=== PATIENT | female | born 1960 | race Caucasian/White ===

== ENCOUNTER 2017-03-31 21:42 | Emergency (ER) | payer MEDICAID ==
[~2017-03-31] VITALS: Ht 157.5 cm; Wt 92.1 kg
[~2017-03-31 21:42] MED LIST: INSUINJ IJ; LISI-646 PO
[2017-03-31 22:24] LABS: Basophils # (auto) 0 uL; Basophils % (auto) 0.5 % (0.0-2.0); Eosinophils # (auto) 0 uL; Hematocrit 41.9 % (36.0-46.0); Hemoglobin 13.7 g/dL (12.2-16.2); Lymphocytes # (auto) 0.8 uL; Lymphocytes % (auto) 15.2 % (10.0-50.0); Mean Corpuscular Hemoglobin 29.7 pg (28.0-32.0); Mean Corpuscular Hgb Conc. 32.7 g/dL (32.0-36.0); Mean Corpuscular Volume 90.7 fL (80.0-100.0); Monocytes # (auto) 0.1 uL; Monocytes % (auto) 1.4 % (0.0-12.0); Neutrophils # (auto) 4.5 uL; Neutrophils % (auto) 82.9 % (37.0-80.0); Nucleated Red Blood Cells % 0.1 %; Platelet Count (auto) 256 10^3/uL (140-450); Red Blood Cells 4.62 10^6/uL (4.0-5.20); Red Cell Distribution Width 14.4 % (11.8-14.3); White Blood Cell 5.4 10^3/uL (4.4-10.8)
[2017-03-31 22:48] LABS: Albumin 3.6 g/dL (3.4-5.0); BUN/Creatinine Ratio 18.4; Bilirubin, Total 0.4 mg/dL (0.2-1.0); Calcium 9.2 mg/dL (8.5-10.1); Magnesium 2.3 mg/dL (1.6-2.6)
[2017-04-01] MEDS ORDERED: SODIUM CHLORIDE 0.9% 1,000 ML IV ONE ×2 (03:30→06:15)
[2017-04-01] MEDS ORDERED: HYDROcodone-ACET 5/325MG TAB PO ONE ×2 (04:15→08:30)
[2017-04-01] MEDS ORDERED: InsuLIN REG 1unit/0.01ml Soln (100units/ml) IV ONE ×2 (04:15→06:15)
[2017-04-01] MEDS ORDERED: MORPHINE SULFATE 10 MG/ML INJ 1ML SDV IV ONE (06:00)
[2017-04-01] MEDS ORDERED: ONDANSETRON HCL 4 MG/2 ML VIAL IV ONE (06:00)
[2017-04-01] MEDS ORDERED: ONDANSETRON HCL 4 MG/2 ML VIAL ONE (06:05)
[2017-04-01 10:51] VITALS: BP 108/79
== END 2017-04-01 07:21 | disposition home or self-care (01) ==
LOC: EDBD 21:42 → ER 21:49
DX: R07.89 Other chest pain (principal); E11.65 Type 2 diabetes mellitus with hyperglycemia; I10 Essential (primary) hypertension; I25.2 Old myocardial infarction; E78.5 Hyperlipidemia, unspecified; Z90.49 Acquired absence of other specified parts of digestive tract; Z87.891 Personal history of nicotine dependence; Z88.2 Allergy status to sulfonamides
CPT/HCPCS: 36415; 80053; 82010; 82962; 83735; 84484; 85025; 93005; 96361; 96374; 96375; 96376; 99285; J7030; 71045; J2405

== ENCOUNTER 2025-02-26 09:57 | Inpatient (IN) | payer OTHER, MEDICAID ==
[~2025-02-26] VITALS: Ht 157.5 cm; Wt 108.9 kg
[~2025-02-26 09:57] MED LIST changes: -LISI-646 PO; +LISI20TA56 PO
--- NOTE | 2025-02-26 10:15 | ED.PDOC ---
Altered Mental Status HPI Comments This is a 64 year old female JRA presenting to the ED with chief complaint of ALOC/hypoglycemia. EMS reports that the patient was found by family to be unresponsive at home in her walker. EMS relays that the patient's glucose on scene was 43, administering D10 with eventual improvement in mentation noted. EMS states patient has history of Type 1 DM and took her insulin this morning. Patient notes she does not remember any of the events this morning after taking her insulin. Patient denies any chest pain, SOB, dizziness, headache, N/V, or abdominal pain. Chief Complaint: Hypoglycemia Time Seen by MD: 10:12 Primary Care Provider: NOE Reviewed Notes: Nurses Notes, Personnel Worker Notes, Medications, Allergies Allergies: Coded Allergies: NSAIDs (Verified Allergy, Unknown, 02/26/25) Sulfa Antibiotics (Unverified Allergy, Unknown, 03/15/15) Home Meds Reported Medications Insulin Regular (Human) (Humulin R) 1 Ml Inj, 1 ML IJ, INJ 03/16/15 Lisinopril (Lisinopril) 20 Mg Tab, 1 TAB PO DAILY, #30 TAB 5 Refills 03/16/15 Information Source: Patient, Emergency Med Personnel Mode of Arrival: EMS Severity: Moderate Timing: Hours Duration: Since onset Prehospital treatment: None Quality: Decreased Alertness, Change in Behavior, Confusion Recent: None History of: Diabetes, Hypoglycemia Past Medical History PAST MEDICAL HISTORY: DM, High Lipids, HTN, SC, Thyroid Surgical History: Cholecystectomy, SET UP MECHANIC STAMPING MACHINES History: No Pertinent SET UP MECHANIC STAMPING MACHINES History Family History Family History: Reviewed,noncontributory to illness, Unknown Social History Smoker: Non-Smoker, Quit Greater Than 1 Year Alcohol: Rarely Drugs: Denies Drug Use Lives In: Home Constitutional: reports: fatigue; denies: chills, diaphoresis, fever, malaise, sweats, weakness, others EENTM: denies: blurred vision, double vision, ear bleeding, ear discharge, ear drainage, ear pain, ear ringing, eye pain, eye redness, hearing loss, mouth pain, mouth swelling, nasal discharge, nose bleeding, nose congestion, nose pain, photophobia, tearing, throat pain, throat swelling, voice changes, others Respiratory: denies: cough, hemoptysis, orthopnea, SOB at rest, shortness of breath, SOB with excertion, stridor, wheezing, others Cardiovascular: denies: chest pain, dizzy spells, diaphoresis, Dyspnea on exertion, edema, irregular heart beat, left arm pain, lightheadedness, palpitations, PND, syncope, others Gastrointestinal: denies: abdomen distended, abdominal pain, blood streaked bowels, constipated, diarrhea, dysphagia, difficulty swallowing, hematemesis, melena, nausea, poor appetite, poor fluid intake, rectal bleeding, rectal pain, vomiting, others Genitourinary: denies: abnormal vagina bleeding, burning, dyspareunia, dysuria, flank pain, frequency, hematuria, incontinence, pain, , vagina discharge, urgency, others Neurological: denies: dizziness, fainting, headache, left sided numbness, left sided weakness, numbness, paresthesia, pre-existing deficit, right sided numbness, right sided weakness, seizure, speech problems, tingling, tremors, w eakness, others Musculoskeletal: denies: back pain, gout, joint pain, joint swelling, muscle pain, muscle stiffness, neck pain, others Integumetry: denies: bruises, change in color, change in hair/nails, dryness, laceration, lesions, lumps, rash, wounds, others Allergic/Immunocompromised: denies: Difficulty Healing, Frequent Infections, Hives, Itching, others Hematologic/Lymphatic: denies: anemia, blood clots, easy bleeding, easy bruising, swollen glands, others Endocrine: reports: others (Hypoglycemia); denies: excessive hunger, excessive sweating, excessive thirst, excessive urination, flushing, intolerance to cold, intolerance to heat, unexplained weight gain, unexplained weight loss Psychiatric: denies: anxiety, bipolar disorder, depression, hopeless, panic disorder, schizophrenia, sleepless, suicidal, others All Other Systems: Reviewed and Negative Physical Exam General Appearance: Moderate Distress, Normal HEENT: Normal ENT Inspection, Pharynx Normal, TMs Normal Neck: Full Range of Motion, Non-Tender, Normal, Normal Inspection Respiratory: Chest Non-Tender, Lungs Clear, No Accessory Muscle Use, No Respiratory Distress, Normal Breath Sounds Cardiovascular: No Edema, No JVD, No Murmur, No Gallop, Normal Peripheral P ulses, Regular Rate/Rhythm Breast Exam: Deferred Gastrointestinal: No Organomegaly, Non Tender, No Pulsatile Mass, Normal Bowel Sounds, Soft Genitalia: Deferred Pelvic: Deferred Rectal: Deferred Extremities: No calf tenderness, Normal capillary refill, Normal inspection, Normal range of motion, Non-tender, No pedal edema Musculoskeletal : Apperance: Normal Neurologic: Alert, resident service coordinator II-XII nml as Tested, No Motor Deficits, Normal Affect, Normal Mood, No Sensory Deficits Cerebellar Function: NOT DONE Reflexes: NOT DONE Skin: Dry, Normal Color, Warm Peripheral Pulses: 3+ Radial (R), 3+ Radial (L) Lymphatic: No Adenopathy Was a procedure done? Was a procedure done?: No Differential Diagnosis (ALOC) Differential Diagnosis: Dehydration, Hypoglycemia X-Ray, Labs, Meds, VS Vital Signs Date Time Temp Pulse Resp B/P (MAP) Pulse Ox O2 Delivery O2 Flow Rate FiO2 02/26/25 13:19 97.3 67 16 143/75 (97) 97 97.3 02/26/25 11:39 67 14 98 Room Air* 0 21 02/26/25 11:39 97.9 67 14 148/81 (103) 98 97.9 02/26/25 10:02 65 02/26/25 09:57 97.9 66 16 154/79 94 97.9 Lab Test 02/26/25 14:02 02/26/25 13:06 02/26/25 11:34 02/26/25 10:53 Range/Units POC Glucose 104 77 61 L 70-106 mg/dl Urine Color Light-yellow Yellow Urine Clarity Clear Clear Urine pH 6.5 5.0-9.0 Urine Specific [place] 1.009 1.001-1.035 Urine Protein Negative Negative Urine Ketones Negative Negative Urine Blood Negative Negative /uL Urine Nitrite Negative Negative Urine Bilirubin Negative Negative Urine Urobilinogen Normal Negative mg/dL Urine Leukocyte Esterase 2+ Negative /uL Urine RBC 2 0 - 4 /hpf Urine Microscopic WBC 5 0-5 /HPF Urine Squamous Epithelial Cells Few <5 /hpf Urine Bacteria Few H None Seen /hpf Urine Glucose Normal Normal mg/dL Test 02/26/25 10:52 Range/Units White Blood Count 10.4 4.4-10.8 10^3/uL Red Blood Count 4.52 4.0-5.20 10^6/uL Hemoglobin 13.4 12.2-16.2 g/dL Hematocrit 41.5 36.0-46.0 % Mean Corpuscular Volume 91.8 80.0-100.0 fL Mean Corpuscular Hemoglobin 29.7 28.0-32.0 pg Mean Corpuscular Hemoglobin Concent 32.4 32.0-36.0 g/dL Red Cell Distribution Width 15.1 H 11.8-14.3 % Platelet Count 280 140-450 10^3/uL Mean Platelet Volume 7.8 6.9-10.8 fL Neutrophils (%) (Auto) 68.7 37.0-80.0 % Lymphocytes (%) (Auto) 18.3 10.0-50.0 % Monocytes (%) (Auto) 10.2 0.0-12.0 % Eosinophils (%) (Auto) 2.2 0.0-7.0 % Basophils (%) (Auto) 0.6 0.0-2.0 % Neutrophils # (Auto) 7.2 1.6-8.6 10 ^3/uL Lymphocytes # (Auto) 1.9 0.4-5.4 10 ^3/uL Monocytes # (Auto) 1.1 0-1.3 10 ^3/uL Eosinophils # (Auto) 0.2 0-0.8 10 ^3/uL Basophils # (Auto) 0.1 0-0.2 10 ^3/uL Nucleated Red Blood Cells 0.0 % Sodium Level 143 136-145 mmol/L Potassium Level 4.8 3.5-5.1 mmol/L Chloride Level 108 H 98-107 mmol/L Carbon Dioxide Level 27 20-31 mmol/L Anion Gap 8 5-15 Blood Urea Nitrogen 12 9-23 mg/dL Creatinine 0.90 0.550-1.02 mg/dL Glomerular Filtration Rate Calc 71 >90 mL/min BUN/Creatinine Ratio 13.3 10.0-20.0 Serum Glucose 62 L 74-106 mg/dL Calcium Level 9.3 8.7-10.4 mg/dL Troponin I High Sensitivity 7 </=34 ng/L Current Medications Medications (Trade) Dose Ordered Sig/Libby Route Start Time Stop Time Status Last Admin Dextrose 1,000 ml @ 75 mls/hr [id number] ONCE IV 02/26/25 11:30 02/27/25 00:49 02/26/25 11:50 Patient alert. Answering questions. Was altered in the field. Vitals stable. Blood sugar continues to drop. Placed on D10. She does have insulin dependent diabetes. Continue monitoring. [facility] approved inpatient admission [id number]. Time of 1ST Reevaluation: 11:11 Reevaluation 1ST: Unchanged Patient Education/Counseling: Diagnosis, Treatment Family Education/Counseling: No Family Present SEPSIS Sepsis Screen Physician Orders Chest Portable (02/26/25 10:10) Electrocardigram (02/26/25 10:15) Accucheck (02/26/25 10:41) Dextrose 10% (02/26/25 11:30) Vital Signs Date Time Temp Pulse Resp B/P (MAP) Pulse Ox O2 Delivery O2 Flow Rate FiO2 02/26/25 13:19 97.3 67 16 143/75 (97) 97 97.3 02/26/25 11:39 67 14 98 Room Air* 0 21 02/26/25 11:39 97.9 67 14 148/81 (103) 98 97.9 02/26/25 10:02 65 02/26/25 09:57 97.9 66 16 154/79 94 97.9 Laboratory Tests Test 02/26/25 10:52 White Blood Count 10.4 10^3/uL (4.4-10.8) Medications Medications Dose Ordered Sig/Libby Route Start Time Stop Time Status Last Admin Dose Admin Dextrose 1,000 ml @ 75 mls/hr [id number] ONCE IV 02/26/25 11:30 02/27/25 00:49 02/26/25 11:50 Departure 1 Departure Time of Disposition: 14:47 Impression: Primary Impression: Hypoglycemia Disposition: ADMITTED INPATIENT Admit to: Med Surg Condition: Guarded Critical Care Note Critical Care Time?: Yes (90 min-critical care time only) Stability Stability form required: No Heart Score Heart Score: Heart Score Response (Comments) Value History N/A 0 EKG N/A 0 Age N/A 0 Risk Factors N/A 0 Troponin N/A 0 Total 0 I personally scribed for BELÉN IRAHETA MD ([email or web address]) on 02/26/25 at 10:15. Electronically submitted by Giorgi Gil ([email or web address]). BELÉN IRAHETA MD Feb 26, 2025 10:15
--- NOTE | 2025-02-26 10:17 | ECG ---
[facility] Test Date: 2025-02-26 Test Time: 10:02:56 Pat Name: DONNA MARTINEZ Department: [facility] ED Patient ID: [id number] Room: Gender: F Gas Load Dispatcher: marleny : 1960 Requested By: BELÉN IRAHETA Order Number: [id number] Reading MD: Asher Teran Measurements Intervals [place] Rate: 65 P: 46 IA: 206 QRS: -29 QRSD: 129 T: 21 QT: 504 QTc: 525 Interpretive Statements Sinus rhythm Nonspecific intraventricular conduction delay Inferior infarct, old Probable anterior infarct, age indeterminate Baseline wander in lead(s) I,II,aVR Electronically Signed On 02-26-2025 15:29:39 PST by Asher Teran Please click the below link to view image of tracing.
--- NOTE | 2025-02-26 11:04 | DVH ---
CHEST RADIOGRAPH INDICATION: sob TECHNIQUE: Single frontal view of the chest was obtained COMPARISON: None FINDINGS: Lines and Tubes: None Lungs: Clear Pleura: No effusion. No pneumothorax. Cardiomediastinal contours: Unremarkable Bones: Unremarkable IMPRESSION: No acute disease.
[2025-02-26 11:30] LABS: Hematocrit 41.5 % (36.0-46.0); Hemoglobin 13.4 g/dL (12.2-16.2); Mean Corpuscular Hemoglobin 29.7 pg (28.0-32.0); Mean Corpuscular Volume 91.8 fL (80.0-100.0); Nucleated Red Blood Cells % 0.0 %
[2025-02-26] MEDS: DEXTROSE 10% 1,000 ML IV ONE ×2 (11:30→11:50)
[2025-02-26 11:31] LABS: Potassium 4.8 mmol/L (3.5-5.1); Sodium 143 mmol/L (136-145)
[2025-02-26 11:32] LABS: Anion Gap 8 (5-15); Calcium 9.3 mg/dL (8.7-10.4); Carbon Dioxide 27 mmol/L (20-31)
[2025-02-26 11:35] LABS: Chloride 108 mmol/L (98-107)
[2025-02-26 11:37] LABS: BUN/Creatinine Ratio 13.3 (10.0-20.0); Blood Urea Nitrogen 12 mg/dL (9-23)
[2025-02-26 11:38] LABS: Glucose 62 mg/dL (74-106)
[2025-02-26 11:39] VITALS: PULSE 67; RESP 14; O2SAT 98
[2025-02-26 14:00] VITALS: PULSE 72; RESP 21; O2SAT 97
[2025-02-26 14:10] LABS: Urine Protein, UAD Negative (Negative)
[2025-02-26] MEDS ORDERED: MORPHINE SULFATE INJ 2 MG/ml SYRG IV PRN (17:45)
[2025-02-26] MEDS ORDERED: DEXTROSE (50%) 50ML SYRG IV PRN ×2 (17:45→18:45)
[2025-02-26] MEDS ORDERED: NITROGLYCERIN 0.4 MG SL TAB SL PRN (17:45)
[2025-02-26] MEDS ORDERED: ONDANSETRON HCL 4 MG/2 ML VIAL IV PRN (17:45)
--- NOTE | 2025-02-26 18:10 | DVHHPRES ---
History of Present Illness Resident Creating Document: LUCIO MATHIAS RESIDENT History of Present Illness Ms Storey is a 64 y o female patient with a history of diabetes, thyroid disease, and two prior heart attacks presenting after being found catatonic in her kitchen this morning by her . The patient reports that her found her sitting in her kitchen, sweaty and unresponsive to verbal stimuli. She has no recollection of the event. Her gave her a mini can of soda, which she drank but remained non-responsive. Emergency medical services were called and administered IV sugar and other treatments, but she remained very non- responsive. She reports one prior similar episode but states she never passed out during that incident and could hear everything happening around her. This is the first time she has experienced complete unresponsiveness. The patient reports taking both long-acting and short-acting insulin and checks her blood glucose three times daily before taking insulin. Her blood glucose was 105 this morning when she woke up, but she still took her insulin dose. She denies skipping meals recently. She occasionally sees glucose readings over 200 after meals but describes this as infrequent. She has not had any recent changes to her insulin regimen by her primary care physician, Dr. Plummer. The patient reports some urinary symptoms including incontinence and some burning sensation. She has intermittent bleeding and was scheduled for surgery on February 24 for an endometrial biopsy to check for endometrial cancer. She has a chronic cough that she describes as longstanding. She denies recent fever, chills, or diarrhea. She recently saw her range conservationist for cardiac clearance and had an echocardiogram on Wednesday, with a stress test scheduled for March 06 and due to cardiac concerns. Medical History - Diabetes mellitus - Thyroid disorder - History of two myocardial infarctions with four cardiac stents placed - Hypertension - One prior episode of hypoglycemia without loss of consciousness - Urinary incontinence - Intermittent vaginal bleeding Surgical History - Cardiac catheterization with stent placement for coronary artery disease following two myocardial infarctions Medications and Supplements - Insulin long-acting and short-acting - Takes after checking blood glucose 3 times daily - Prasgrel - Baby aspirin daily - Atorvastatin - Levothyroxine one pill every morning dose not known Social History - Living Situation: Lives with . Denies smoking, alcohol and other drug abuse Review of Systems General: Negative for fever. Respiratory: Positive for chronic cough. Gastrointestinal: Negative for diarrhea. Genitourinary: Positive for urinary incontinence, burning sensation with urination, and intermittent bleeding. Review of Systems Allergies: Coded Allergies: NSAIDs (Verified Allergy, Unknown, 02/26/25) Sulfa Antibiotics (Unverified Allergy, Unknown, 03/15/15) Medications Current Medications Medications Dose Ordered Sig/Libby Route Start Time Stop Time Status Last Admin Dose Admin Sodium Chloride 10 ml Q8HR IV 02/26/25 22:00 Ondansetron HCl 4 mg Q4HP PRN IV 02/26/25 17:45 Enoxaparin Sodium 40 mg DAILY SC 02/27/25 10:00 UNV Acetaminophen 650 mg Q6HP PRN PO 02/26/25 17:45 Nitroglycerin 0.4 mg Q5MINP PRN SL 02/26/25 17:45 Morphine Sulfate 2 mg Q30M PRN IV 02/26/25 17:45 Diagnostic Test (Pha) 1 strip IQ4HR 02/26/25 20:00 Insulin Human Regular IQ4HR SC 02/26/25 20:00 Dextrose 50 ml UD PRN IV 02/26/25 17:45 Ceftriaxone Sodium 50 ml @ 100 mls/hr DAILY@09 IV 02/27/25 09:00 Exam Vital Signs Vital Signs Date Time Temp Pulse Resp B/P (MAP) Pulse Ox O2 Delivery O2 Flow Rate FiO2 02/26/25 16:00 73 02/26/25 16:00 97.6 21 164/81 (108) 97 97.6 02/26/25 14:00 Room Air* 0 21 Exam Pt is lying on bed General Appearance: Alert, Oriented X3, Cooperative, Not in acute distress HEENT: Atraumatic, Mucous membranes moist/pink Respiratory: Clear to auscultation, Normal air movement, No added sounds Cardiovascular: Regular rate, Normal S1, Normal S2, No murmurs Abdominal: Active bowel sounds, Soft, no distention, no tenderness Extremities: Trace edema, Normal pulses, No tenderness/swelling Skin: No Significant rash, except past surgical scars Neuro: Normal speech, sensorimotor deficits none Psych/Mental Status: Mental status NL, Mood NL Nurse was there as sealer aircraft during examination Labs/Xrays Labs Test 02/26/25 14:02 02/26/25 13:06 02/26/25 10:52 Range/Units POC Glucose 104 70-106 mg/dl Urine Color Light-yellow Yellow Urine Clarity Clear Clear Urine pH 6.5 5.0-9.0 Urine Specific [place] 1.009 1.001-1.035 Urine Protein Negative Negative Urine Ketones Negative Negative Urine Blood Negative Negative /uL Urine Nitrite Negative Negative Urine Bilirubin Negative Negative Urine Urobilinogen Normal Negative mg/dL Urine Leukocyte Esterase 2+ Negative /uL Urine RBC 2 0 - 4 /hpf Urine Microscopic WBC 5 0-5 /HPF Urine Squamous Epithelial Cells Few <5 /hpf Urine Bacteria Few H None Seen /hpf Urine Glucose Normal Normal mg/dL White Blood Count 10.4 4.4-10.8 10^3/uL Red Blood Count 4.52 4.0-5.20 10^6/uL Hemoglobin 13.4 12.2-16.2 g/dL Hematocrit 41.5 36.0-46.0 % Mean Corpuscular Volume 91.8 80.0-100.0 fL Mean Corpuscular Hemoglobin 29.7 28.0-32.0 pg Mean Corpuscular Hemoglobin Concent 32.4 32.0-36.0 g/dL Red Cell Distribution Width 15.1 H 11.8-14.3 % Platelet Count 280 140-450 10^3/uL Mean Platelet Volume 7.8 6.9-10.8 fL Neutrophils (%) (Auto) 68.7 37.0-80.0 % Lymphocytes (%) (Auto) 18.3 10.0-50.0 % Monocytes (%) (Auto) 10.2 0.0-12.0 % Eosinophils (%) (Auto) 2.2 0.0-7.0 % Basophils (%) (Auto) 0.6 0.0-2.0 % Neutrophils # (Auto) 7.2 1.6-8.6 10 ^3/uL Lymphocytes # (Auto) 1.9 0.4-5.4 10 ^3/uL Monocytes # (Auto) 1.1 0-1.3 10 ^3/uL Eosinophils # (Auto) 0.2 0-0.8 10 ^3/uL Basophils # (Auto) 0.1 0-0.2 10 ^3/uL Nucleated Red Blood Cells 0.0 % Sodium Level 143 136-145 mmol/L Potassium Level 4.8 3.5-5.1 mmol/L Chloride Level 108 H 98-107 mmol/L Carbon Dioxide Level 27 20-31 mmol/L Anion Gap 8 5-15 Blood Urea Nitrogen 12 9-23 mg/dL Creatinine 0.90 0.550-1.02 mg/dL Glomerular Filtration Rate Calc 71 >90 mL/min BUN/Creatinine Ratio 13.3 10.0-20.0 Serum Glucose 62 L 74-106 mg/dL Calcium Level 9.3 8.7-10.4 mg/dL Troponin I High Sensitivity 7 </=34 ng/L SEPSIS Sepsis Screen Date sepsis recognized/suspect: Feb 26, 2025 Time Sepsis recognized/suspect: 1400 Recent Procedure: No On Antibiotic Therapy: No Respiratory Rate >20: No Heart Rate >90: No Temp<36 C (96.8 F) or >38.3 C: No SBP <90 or MAP <65 mmHG: No New Acute Mental Status Change: No Is the patient on CPAP, BIPAP,: No Physician Orders Electrocardigram (02/26/25 10:15) Accucheck (02/26/25 10:41) Dextrose 10% (02/26/25 11:30) Admit (02/26/25 17:44) Allergies (02/26/25 17:44) Code Status (02/26/25 17:44) Sodium Chloride Lock (Saline Lock Ns) (02/26/25 22:00) Ondansetron Hcl (Zofran) (02/26/25 17:45) Enoxaparin Sodium (Lovenox) (02/27/25 10:00) Complete Blood Count (02/27/25 04:00) Comprehensive Metabolic Panel (02/27/25 04:00) Cardiac Diet-2gna,Lofat,Lochol (02/26/25 Dinner) Condition: Fair (02/26/25 17:44) Acetaminophen Tablet (Tylenol Tablet) (02/26/25 17:45) Nitroglycerin Sublingual (Ntrostat Subli (02/26/25 17:45) Morphine Sulfate Injection (02/26/25 17:45) Oxygen By Nasal Cannula (02/26/25 17:44) Stat Ekg For Chest Pain (02/26/25 17:44) Notify Md Of Changes From Base (02/26/25 17:44) Assistant Foreman For 24 Hours (02/26/25 17:44) Emergency Dysrhythmia Protocol (02/26/25 17:44) Rhythm Strips Once Every Shift (02/26/25 17:44) Glucose Blood (Accu-Chek Comfort Curve T (02/26/25 20:00) Insulin R (Human) (Insulin R) (02/26/25 20:00) Dextrose 50% Syringe (02/26/25 17:45) Ceftriaxone 1gm/50ml (Rocephin) (02/26/25 17:45) Ceftriaxone 1gm/50ml (Rocephin) (02/27/25 09:00) Vital Signs Date Time Temp Pulse Resp B/P (MAP) Pulse Ox O2 Delivery O2 Flow Rate FiO2 02/26/25 16:00 73 02/26/25 16:00 97.6 73 21 164/81 (108) 97 97.6 02/26/25 14:00 72 21 97 Room Air* 0 21 02/26/25 14:00 97.6 72 21 159/82 (107) 97 97.6 02/26/25 13:19 97.3 67 16 143/75 (97) 97 97.3 02/26/25 11:39 67 14 98 Room Air* 0 21 02/26/25 11:39 97.9 67 14 148/81 (103) 98 97.9 Laboratory Tests Test 02/26/25 10:52 White Blood Count 10.4 10^3/uL (4.4-10.8) Medications Medications Dose Ordered Sig/Libby Route Start Time Stop Time Status Last Admin Dose Admin Dextrose 1,000 ml @ 75 mls/hr [id number] ONCE IV 02/26/25 11:30 02/27/25 00:49 02/26/25 11:50 75 MLS/HR Assessment/Plan Assessment/Plan Cordelia is a diabetic patient with history of heart attacks and thyroid disease presenting after being found catatonic this morning by her , likely due to hypoglycemic episode requiring EMS intervention with IV dextrose. Acute metabolic encephalopathy likely from severe hyperglycemia Severe Hypoglycemic Plan: - Admit for glucose monitoring and insulin adjustment - no head CT indicated at this time because no fall - Monitor glucose fluctuations in response to current insulin regimen - currently on Accu-Cheks - Adjust insulin dosing as current dose appears excessive # Acute complicated UTI/ cystitis - evident on urinalysis - ordered urine bacterial culture - currently giving Rocephin ND S/p PTCA x2 HLD HTN Crisis Plan: - Continue baby aspirin and prasugrel daily - Continue atorvastatin - amlodipine 10 PUD PPX Not indicated DVT PPX Lovenox Cardiac diet Goals of care discussed with the patient for more than 27 minutes: Full code status Case discussed with Dr. Thompson, patient and nurse Plan discussed with: Patient My Orders Orders - LUCIO MATHIAS RESIDENT Procedure Category Date Status Time Admit ADMIT 02/26/25 Transmitted 17:44 Allergies BRENDON 02/26/25 In Process 17:44 Code Status CODE 02/26/25 Transmitted 17:44 Sodium Chloride Lock PHA 02/26/25 In Process (Saline Lock Ns) 22:00 Ondansetron Hcl PHA 02/26/25 In Process (Zofran) 17:45 Enoxaparin Sodium PHA 02/27/25 Logged (Lovenox) 10:00 Complete Blood Count LAB 02/27/25 Verified 04:00 Comprehensive LAB 02/27/25 Verified Metabolic Panel 04:00 Cardiac DIET 02/26/25 Transmitted Diet-2gna,Lofat,Lochol Dinner Condition: Fair BRENDON 02/26/25 In Process 17:44 Acetaminophen Tablet PHA 02/26/25 In Process (Tylenol Tablet) 17:45 Nitroglycerin PHA 02/26/25 In Process Sublingual (Ntrostat 17:45 Morphine Sulfate PHA 02/26/25 In Process Injection 17:45 Oxygen By Nasal RT 02/26/25 Transmitted Cannula 17:44 Stat Ekg For Chest BRENDON 02/26/25 In Process Pain 17:44 Notify Md Of Changes [facility] 02/26/25 In Process From Base 17:44 Assistant Foreman For [facility] 02/26/25 In Process 24 Hours 17:44 Emergency Dysrhythmia [facility] 02/26/25 In Process Protocol 17:44 Rhythm Strips Once [facility] 02/26/25 In Process Every Shift 17:44 Glucose Blood PHA 02/26/25 In Process (Accu-Chek Comfort 20:00 Insulin R (Human) PHA 02/26/25 In Process (Insulin R) 20:00 Dextrose 50% Syringe PHA 02/26/25 In Process 17:45 Ceftriaxone 1gm/50ml PHA 02/26/25 In Process (Rocephin) 17:45 Ceftriaxone 1gm/50ml PHA 02/27/25 In Process (Rocephin) 09:00 Visit Coding STANDARD RES Billing Provider: BELKYS THOMPSON MD Date of Service if different f: Feb 26, 2025 Common Visit Codes: [id number] INP/OBS CARE (HIGH) Secondary Visit Codes: [id number] CARE PLAN 30 MINUTES LUCIO MATHIAS RESIDENT Feb 26, 2025 18:10 BELKYS THOMPSON MD Feb 27, 2025 22:12
[2025-02-26] MEDS: ACCU-CHEK COMFORT CURVE STRIP VI SCH ×2 (20:00→23:05)
[2025-02-26] MEDS: InsuLIN REG 1unit/0.01ml Soln (100units/ml) SC SCH ×2 (20:00→23:05)
[2025-02-26 22:11] VITALS: BP 135/86; PULSE 78; RESP 17; TEMP 98.8; O2SAT 93
[2025-02-26] MEDS ORDERED: CARV12.544 PO (23:15)
[2025-02-26] MEDS ORDERED: LEVO-177 PO (23:15)
[2025-02-26] MEDS ORDERED: ALBU108A5 INH (23:15)
[2025-02-26] MEDS ORDERED: LOS25T PO (23:15)
[2025-02-26] MEDS ORDERED: INSREG3 (23:15)
[2025-02-26] MEDS ORDERED: TRAM50TA2 PO (23:15)
[2025-02-26] MEDS ORDERED: PRAS10TA8 PO (23:15)
[2025-02-27] MEDS: PRASUGREL HCL 10 MG TAB PO ONE (00:23)
[2025-02-27] MEDS: ATORVASTATIN 20 MG TAB PO SCH (00:24)
[2025-02-27] MEDS: SODIUM CHLOR 0.9% PF (SALINE LOCK) 10ML VIAL/SYR IV SCH (00:31)
[2025-02-27 01:00] VITALS: BP 111/60; PULSE 80; RESP 17; TEMP 99; O2SAT 97
[2025-02-27 05:00] VITALS: BP 117/64; PULSE 71; RESP 17; TEMP 98.6; O2SAT 93
[2025-02-27 06:44] LABS: Hematocrit 37.7 % (36.0-46.0); Hemoglobin 12.5 g/dL (12.2-16.2); Mean Corpuscular Hemoglobin 30.0 pg (28.0-32.0); Mean Corpuscular Volume 90.6 fL (80.0-100.0); Nucleated Red Blood Cells % 0.1 %
[2025-02-27 07:26] LABS: Alanine Aminotransferase 11 U/L (7-40); Anion Gap 9 (5-15); Carbon Dioxide 24 mmol/L (20-31)
[2025-02-27 07:28] LABS: Albumin 3.5 g/dL (3.2-4.8); BUN/Creatinine Ratio 15.0 (10.0-20.0); Blood Urea Nitrogen 12 mg/dL (9-23); Total Protein 6.4 g/dL (5.7-8.2)
[2025-02-27 07:30] LABS: Bilirubin, Total 0.5 mg/dL (0.2-1.0)
[2025-02-27 07:31] LABS: Alkaline Phosphatase 92 U/L (46-116); Calcium 8.5 mg/dL (8.7-10.4); Chloride 108 mmol/L (98-107); Glucose 150 mg/dL (74-106); Potassium 4.2 mmol/L (3.5-5.1); Sodium 141 mmol/L (136-145)
[2025-02-27 09:19] VITALS: BP 121/68; PULSE 79; RESP 17; TEMP 98.5; O2SAT 93
[2025-02-27] MEDS: PRASUGREL HCL 10 MG TAB PO SCH (09:21)
[2025-02-27] MEDS: ASPirin-EC 81 mg tab PO SCH (09:22)
[2025-02-27] MEDS: ENOXAPARIN SOD 40 MG/0.4 ML SYRINGE SC SCH (09:25)
[2025-02-27] MEDS ORDERED: DEXTROSE (50%) 50ML SYRG IV PRN (11:00)
--- NOTE | 2025-02-27 11:08 | DVHPN2 ---
Progress Note Date Seen: Feb 27, 2025 Medical Necessity Reason Pt with a Central, PICC or Fol: No Subjective Patient reports: No new complaints Review of Systems: HEENT:Normal, CVS:Normal, RESPIRATORY:Normal, GI:Normal, :Normal, MSK:Normal, NEURO:Normal Objective vital signs Vital Sign Date Time Temp Pulse Resp B/P (MAP) Pulse Ox O2 Delivery O2 Flow Rate FiO2 02/27/25 09:23 121/68 02/27/25 09:19 98.5 79 17 93 98.5 02/26/25 22:28 Room Air* 0 21 Total Intake and Output 02/26/25 02/26/25 02/27/25 15:00 23:00 07:00 Intake Total 75 ml 275 ml 300 ml Balance 75 ml 275 ml 300 ml medications Current Medications Medications Dose Ordered Sig/Libby Route Start Time Stop Time Status Last Admin Dose Admin Sodium Chloride 10 ml Q8HR IV 02/26/25 22:00 02/27/25 05:06 10 ML Ondansetron HCl 4 mg Q4HP PRN IV 02/26/25 17:45 Enoxaparin Sodium 40 mg DAILY SC 02/27/25 10:00 Acetaminophen 650 mg Q6HP PRN PO 02/26/25 17:45 Nitroglycerin 0.4 mg Q5MINP PRN SL 02/26/25 17:45 Morphine Sulfate 2 mg Q30M PRN IV 02/26/25 17:45 Diagnostic Test (Pha) 1 strip IQ4HR 02/26/25 20:00 02/27/25 08:00 1 STRIP Insulin Human Regular IQ4HR SC 02/26/25 20:00 02/27/25 08:00 6 UNITS Dextrose 50 ml UD PRN IV 02/26/25 17:45 Ceftriaxone Sodium 50 ml @ 100 mls/hr DAILY@09 IV 02/27/25 09:00 02/27/25 09:23 100 MLS/HR Aspirin 81 mg DAILY PO 02/27/25 10:00 02/27/25 09:22 81 MG Prasugrel 10 mg DAILY PO 02/27/25 10:00 02/27/25 09:21 10 MG Atorvastatin Calcium 40 mg HS PO 02/26/25 22:00 02/27/25 00:24 40 MG Amlodipine Besylate 10 mg DAILY PO 02/27/25 10:00 02/27/25 09:23 10 MG Diagnostic Test (Pha) 1 strip IQ4HR 02/26/25 20:00 Insulin Human Regular IQ4HR SC 02/26/25 20:00 Dextrose 50 ml UD PRN IV 02/26/25 18:45 Examination: GENERAL:Normal, HEENT:Normal, NECK:Normal, LUNGS:Normal, CVS:Normal, ABDOMEN:Normal, MSK:Normal, MSK:Abnormal (edema+), SKIN:Normal, NEURO:Normal, :Normal laboratory and microbiology Laboratory Tests 02/27/25 05:53 Test 02/27/25 05:53 Range/Units Serum Glucose 150 H 74-106 mg/dL Problem List/Assessment/Plan Problem List/Assessment/Plan #1 encephalopathy ?metabolic: neuro eval, ct head #2 dm: ssi #3 htn #4 cad s/p stent #5 morbid obesity #6 uti: iv rocephin #7 hypothyroidism: check tsh unstable for transfer advance care planning- full code- time spent 19 mins Plan discussed with: Patient My Orders My Orders Orders - TERESA FLOREZ MD Procedure Category Date Status Time Glucose Blood PHA 02/27/25 Verified (Accu-Chek Comfort 11:30 Mild Sliding Scale PHA 02/27/25 Verified 11:30 Dextrose 50% Syringe PHA 02/27/25 Verified 11:[address] 02/27/25 Verified 10:57 * Neurology Consult CONS 02/27/25 Verified 10:57 Throat Lozenges PHA 02/27/25 Verified (Cepastat Lozenges) 11:00 Levothyroxine Tablet PHA 02/28/25 Verified (Synthroid Tablet) 06:00 Echo 2d Mode Cardiac US 02/27/25 Verified DOP 10:57 Drug Screen LAB 02/27/25 Verified 10:57 Basic Metabolic Panel LAB 02/28/25 Verified 06:00 Complete Blood Count LAB 02/28/25 Verified 06:00 Vitamin B12 LAB 02/28/25 Verified 06:00 Thyroid Stimulating LAB 02/28/25 Verified Hormone 05:00 Hemoglobin A1c LAB 02/28/25 Verified 06:00 Date of Service: Feb 27, 2025 Billing Provider: TERESA FLOREZ MD Common Visit Codes: [id number] INP/OBS CARE(HIGH) Secondary Visit Codes: [id number] CARE PLAN 30 MINUTES TERESA FLOREZ MD Feb 27, 2025 11:08
[2025-02-27] MEDS: InsuLIN REG 1unit/0.01ml Soln (100units/ml) SC SCH (11:30)
[2025-02-27] MEDS: ACCU-CHEK COMFORT CURVE STRIP VI SCH (11:30)
--- NOTE | 2025-02-27 12:16 | DVH ---
EXAM: CT HEAD WITHOUT CONTRAST INDICATION: aloc TECHNIQUE: CT of the head without intravenous contrast. Radiation Dose Information: CT Dose: CTDI volume is 58.23 mGy. Dose-length product is 1263.89 mGy*cm The dose indicators for CT are the volume Computed Tomography (CT) Dose Index (CTDIvol) and the Dose Length Product (DLP), and are measured in units of mGy and mGy-cm, respectively. These indicators are not patient dose, but values generated from the CT scanner acquisition factors. The report includes radiation exposure data for exposures received during this examination. COMPARISON: None FINDINGS: There is no evidence of acute intracranial hemorrhage, extra-axial collection, mass effect, midline shift, herniation or hydrocephalus. The ventricles, sulci and cisterns are age appropriate. The goff-white differentiation is intact. Patchy periventricular and subcortical white matter hypoattenuation is nonspecific but may be related to small vessel ischemic disease. The visualized paranasal sinuses and mastoid air cells are clear. The surrounding soft tissues and osseous structures are unremarkable. IMPRESSION: No acute intracranial abnormality.
[2025-02-27 13:26] VITALS: BP 140/81; PULSE 78; RESP 18; TEMP 98.6; O2SAT 95
[2025-02-27 15:08] LABS: Amphetamine Screen, Urine Neg (NEGATIVE); Barbiturate Scree,Urine Neg (NEGATIVE); Benzodiazephine Screen, Urine Neg (NEGATIVE); Cannabinoid Screen, Urine Neg (NEGATIVE); Cocaine Screen, Urine Neg (NEGATIVE); Opiate Scree,Urine Neg (NEGATIVE); Phencyclidine Screen, Urine Neg (NEGATIVE)
[2025-02-27 17:14] VITALS: BP 108/69; PULSE 80; RESP 17; TEMP 98.5; O2SAT 95
[2025-02-27] MEDS: THROAT LOZENGES(CEPASTAT) MT PRN (17:27)
[2025-02-27] MEDS: ACETAMINOPHEN 325 MG TAB PO PRN (19:39)
[2025-02-27 21:00] VITALS: BP 116/62; PULSE 82; RESP 17; TEMP 98.7; O2SAT 91
[2025-02-28] VITALS (8 sets, daily range): BP systolic 112–135; BP diastolic 58–83; PULSE 77–86; RESP 16–20; TEMP 96.9–98.5; O2SAT 90–94
[2025-02-28] MEDS: LEVOTHYROXINE SODIUM 88 MCG TAB PO SCH (06:29)
[2025-02-28 06:56] LABS: Hematocrit 36.9 % (36.0-46.0); Hemoglobin 12.2 g/dL (12.2-16.2); Mean Corpuscular Hemoglobin 30.3 pg (28.0-32.0); Mean Corpuscular Volume 91.6 fL (80.0-100.0); Nucleated Red Blood Cells % 0.1 %
[2025-02-28 07:17] LABS: Calcium 9.2 mg/dL (8.7-10.4); Chloride 104 mmol/L (98-107); Potassium 4.8 mmol/L (3.5-5.1); Sodium 138 mmol/L (136-145)
[2025-02-28 07:18] LABS: Anion Gap 9 (5-15); Carbon Dioxide 25 mmol/L (20-31)
[2025-02-28 07:23] LABS: BUN/Creatinine Ratio 15.3 (10.0-20.0); Blood Urea Nitrogen 15 mg/dL (9-23)
[2025-02-28 07:25] LABS: Glucose 254 mg/dL (74-106)
--- NOTE | 2025-02-28 10:56 | DVHPN2 ---
Progress Note Date Seen: Feb 28, 2025 Medical Necessity Reason Pt with a Central, PICC or Fol: No Subjective Patient reports: No new complaints Review of Systems: HEENT:Normal, CVS:Normal, RESPIRATORY:Normal, GI:Normal, :Normal, MSK:Normal, NEURO:Normal Objective vital signs Vital Sign Date Time Temp Pulse Resp B/P (MAP) Pulse Ox O2 Delivery O2 Flow Rate FiO2 02/28/25 08:56 124/66 02/28/25 08:46 97.6 81 16 93 97.6 02/27/25 20:00 Room Air* 0 21 Total Intake and Output 02/27/25 02/27/25 02/28/25 15:00 23:00 07:00 Intake Total 50 ml 1000 ml 200 ml Balance 50 ml 1000 ml 200 ml medications Current Medications Medications Dose Ordered Sig/Libby Route Start Time Stop Time Status Last Admin Dose Admin Sodium Chloride 10 ml Q8HR IV 02/26/25 22:00 02/28/25 06:28 10 ML Ondansetron HCl 4 mg Q4HP PRN IV 02/26/25 17:45 Enoxaparin Sodium 40 mg DAILY SC 02/27/25 10:00 02/28/25 08:57 40 MG Acetaminophen 650 mg Q6HP PRN PO 02/26/25 17:45 02/28/25 06:45 650 MG Nitroglycerin 0.4 mg Q5MINP PRN SL 02/26/25 17:45 Morphine Sulfate 2 mg Q30M PRN IV 02/26/25 17:45 Ceftriaxone Sodium 50 ml @ 100 mls/hr DAILY@09 IV 02/27/25 09:00 02/28/25 08:50 100 MLS/HR Aspirin 81 mg DAILY PO 02/27/25 10:00 02/28/25 08:56 81 MG Prasugrel 10 mg DAILY PO 02/27/25 10:00 02/28/25 08:56 10 MG Atorvastatin Calcium 40 mg HS PO 02/26/25 22:00 02/27/25 21:55 40 MG Amlodipine Besylate 10 mg DAILY PO 02/27/25 10:00 02/28/25 08:56 10 MG Diagnostic Test (Pha) 1 strip ACHS 02/27/25 11:30 02/28/25 06:29 1 STRIP Insulin Human Regular ACHS SC 02/27/25 11:30 02/28/25 06:30 6 UNITS Dextrose 50 ml UD PRN IV 02/27/25 11:00 Throat Lozenges 1 hector Q2HP PRN MT 02/27/25 11:00 02/28/25 06:45 1 HECTOR Levothyroxine Sodium 88 mcg QAM@0600 PO 02/28/25 06:00 02/28/25 06:29 88 MCG Examination: GENERAL:Normal, HEENT:Normal, NECK:Normal, LUNGS:Normal, CVS:Normal, ABDOMEN:Normal, MSK:Normal, SKIN:Normal, NEURO:Normal, :Normal laboratory and microbiology Laboratory Tests 02/28/25 06:00 Test 02/28/25 06:00 Range/Units Serum Glucose 254 H 74-106 mg/dL Problem List/Assessment/Plan Problem List/Assessment/Plan #1 encephalopathy ?metabolic- hypoglycemia: per pt -blood sugar was 42 in the field, neuro eval, #2 dm: ssi #3 htn #4 cad s/p stent #5 morbid obesity #6 uti: iv rocephin #7 hypothyroidism: check tsh #8 ? vit b12 def: replace advance care planning- full code- time spent 19 mins Plan discussed with: Patient My Orders My Orders Orders - TERESA FLOREZ MD Procedure Category Date Status Time Glucose Blood PHA 02/27/25 In Process (Accu-Chek Comfort 11:30 Insulin R (Human) PHA 02/27/25 In Process (Insulin R) 11:30 Dextrose 50% Syringe PHA 02/27/25 In Process 11:[address] 02/27/25 Resulted 10:57 * Neurology Consult CONS 02/27/25 Transmitted 10:57 Throat Lozenges PHA 02/27/25 In Process (Cepastat Lozenges) 11:00 Levothyroxine Tablet PHA 02/28/25 In Process (Synthroid Tablet) 06:00 [place] Neuro Consult CONS-TELE 02/28/25 Logged Pt Request For Service PT 02/28/25 Verified 10:50 Cyanocobalamin PHA 02/28/25 Verified Injection (Vitamin 11:00 Date of Service: Feb 28, 2025 Billing Provider: TERESA FLOREZ MD Common Visit Codes: [id number] INP/OBS CARE(HIGH) TERESA FLOREZ MD Feb 28, 2025 10:56
[2025-02-28] MEDS: CYANOCOBALAMIN (B-12) 1000 MCG/1 ML VIAL SUBCUT ONE (11:31)
--- NOTE | 2025-02-28 20:14 | BSKYNEURO ---
[facility] [facility] Note # Demographics Consult Type: General Neurology Patient Location: Inpatient First Name: DONNA Last Name: JUAN Date of : 1960 Age: 64 Gender: Female Facility: [facility] Time of Initial Page (): 02/28/2025 17:06 First Contact with Site (): 02/28/2025 17:06 # HPI History: Patient is currently admitted after an episode of zoning out at home. She was at home on wed and went to make coffee and then she lost awareness and was not responding and had no recollection of the event. The episode of losing awareness lasted approx 30 min. Denied any loss of bowel/bladder incontinence, tongue bite. Patient mentioned that her blood sugar was 42. Denied h/o meningitis/encephalitis, stroke or brain surgery. H/O CAD, DM, HTN # Scores Level of Consciousness 1a: [0] = Alert; keenly responsive LOC Questions 1b: [0] = Answers both questions correctly LOC Commands 1c: [0] = Performs both tasks correctly Best Gaze 2: [0] = Normal Visual 3: [0] = No visual loss Facial Palsy 4: [0] = Normal symmetrical movements Motor Arm Left 5a: [0] = No drift Motor Arm Right 5b: [0] = No drift Motor Leg Left 6a: [0] = No drift Motor Leg Right 6b: [0] = No drift Limb Ataxia 7: [0] = Absent Sensory 8: [0] = Normal Best Language 9: [0] = No aphasia Dysarthria 10: [0] = Normal Extinction and Inattention 11: [0] = No abnormality NIHSS Total: 0 # Assessment Impression: - Seizure Patient has no risk factors for epilepsy and I suspect based on the clinical features that she may have had a focal seizure. suggests workup and waiting on starting an epileptic medication at this time Differential Diagnosis: - Syncope - Seizure-like Activity # Plan Labs: - comprehensive metabolic panel - CBC - ua - urine drug screen - Ammonia - TSH - ESR Imaging: (urgency: routine): - MRI Brain with AND without contrast Diagnostic Test: - EEG - echo with bubble study Other: - If patient has any neurological deterioration please call me back immediately - seizure precautions - I have discussed my recommendations with the referring provider - neurology referral as outpatient - will need event monitor or loop recorder as outpatient if atrial fibrillation not found as inpatient Additional Recommendations: -No driving till cleared by neurology as outpatient # Demographics First Name: DONNA Last Name: JUAN Facility: [facility] Yes RAISA CAVAZOS MD Feb 28, 2025 20:13
[2025-03-01 01:00] VITALS: BP 122/68; PULSE 79; RESP 17; TEMP 98.6; O2SAT 93
[2025-03-01 05:00] VITALS: BP 119/66; PULSE 79; RESP 17; TEMP 98.6; O2SAT 93
[2025-03-01 08:00] VITALS: PULSE 85; RESP 17; O2SAT 91
[2025-03-01 09:23] VITALS: BP 129/73; PULSE 85; RESP 17; TEMP 97.7; O2SAT 91
[2025-03-01] MEDS: InsuLIN REG 1unit/0.01ml Soln (100units/ml) SC ONE (11:56)
[2025-03-01] MEDS: INSULIN LANTUS (GLARGINE) 1 /0.01ml (100units/ml) SC ONE (11:57)
[2025-03-01 12:36] VITALS: BP 137/66; PULSE 87; RESP 17; TEMP 98; O2SAT 93
[2025-03-01] MEDS: diphenhydrAMINE HCL 50 MG/1 ML VL IV PRN (13:04)
[2025-03-01] MEDS ORDERED: CYAN-17 PO (13:27)
[2025-03-01] MEDS ORDERED: CEPH500C PO (13:27)
--- NOTE | 2025-03-01 17:22 | DVHDS2 ---
Discharge Summary Date of Admission Feb 26, 2025 at 17:44 Date of Discharge: Mar 01, 2025 Labs/Diagnostic Data: Laboratory Results Test 03/01/25 11:23 02/28/25 06:00 02/27/25 14:00 02/27/25 05:53 POC Glucose 341 mg/dl (70-106) White Blood Count 6.9 10^3/uL (4.4-10.8) Red Blood Count 4.03 10^6/uL (4.0-5.20) Hemoglobin 12.2 g/dL (12.2-16.2) Hematocrit 36.9 % (36.0-46.0) Mean Corpuscular Volume 91.6 fL (80.0-100.0) Mean Corpuscular Hemoglobin 30.3 pg (28.0-32.0) Mean Corpuscular Hemoglobin Concent 33.1 g/dL (32.0-36.0) Red Cell Distribution Width 14.5 % (11.8-14.3) Platelet Count 245 10^3/uL (140-450) Mean Platelet Volume 8.5 fL (6.9-10.8) Neutrophils (%) (Auto) 57.1 % (37.0-80.0) Lymphocytes (%) (Auto) 26.3 % (10.0-50.0) Monocytes (%) (Auto) 12.7 % (0.0-12.0) Eosinophils (%) (Auto) 2.8 % (0.0-7.0) Basophils (%) (Auto) 1.1 % (0.0-2.0) Neutrophils # (Auto) 3.9 10 ^3/uL (1.6-8.6) Lymphocytes # (Auto) 1.8 10 ^3/uL (0.4-5.4) Monocytes # (Auto) 0.9 10 ^3/uL (0-1.3) Eosinophils # (Auto) 0.2 10 ^3/uL (0-0.8) Basophils # (Auto) 0.1 10 ^3/uL (0-0.2) Nucleated Red Blood Cells 0.1 % Sodium Level 138 mmol/L (136-145) Potassium Level 4.8 mmol/L (3.5-5.1) Chloride Level 104 mmol/L (98-107) Carbon Dioxide Level 25 mmol/L (20-31) Anion Gap 9 (5-15) Blood Urea Nitrogen 15 mg/dL (9-23) Creatinine 0.98 mg/dL (0.550-1.02) Glomerular Filtration Rate Calc 64 mL/min (>90) BUN/Creatinine Ratio 15.3 (10.0-20.0) Serum Glucose 254 mg/dL (74-106) Hemoglobin A1c 7.9 % A1C (<5.7) Calcium Level 9.2 mg/dL (8.7-10.4) Vitamin B12 Level 274 pg/mL (211-911) Thyroid Stimulating Hormone (TSH) 5.51 uIU/mL (0.55-4.78) Urine Opiates Screen Neg (NEGATIVE) Urine Fentanyl Screen Neg (NEGATIVE) Urine Barbiturates Screen Neg (NEGATIVE) Urine Phencyclidine Screen Neg (NEGATIVE) Urine Amphetamines Screen Neg (NEGATIVE) Urine Benzodiazepines Screen Neg (NEGATIVE) Urine Cocaine Screen Neg (NEGATIVE) Urine Cannabinoids Screen Neg (NEGATIVE) Total Bilirubin 0.5 mg/dL (0.2-1.0) Aspartate Amino Transferase (AST) 16 U/L (13-40) Alanine Aminotransferase (ALT) 11 U/L (7-40) Alkaline Phosphatase 92 U/L (46-116) Total Protein 6.4 g/dL (5.7-8.2) Albumin 3.5 g/dL (3.2-4.8) Test 02/26/25 13:06 02/26/25 10:52 Urine Color Light-yellow (Yellow) Urine Clarity Clear (Clear) Urine pH 6.5 (5.0-9.0) Urine Specific [place] 1.009 (1.001-1.035) Urine Protein Negative (Negative) Urine Ketones Negative (Negative) Urine Blood Negative /uL (Negative) Urine Nitrite Negative (Negative) Urine Bilirubin Negative (Negative) Urine Urobilinogen Normal mg/dL (Negative) Urine Leukocyte Esterase 2+ /uL (Negative) Urine RBC 2 /hpf (0 - 4) Urine Microscopic WBC 5 /HPF (0-5) Urine Squamous Epithelial Cells Few /hpf (<5) Urine Bacteria Few /hpf (None Seen) Urine Glucose Normal mg/dL (Normal) Troponin I High Sensitivity 7 ng/L (</=34) Other Laboratory Tests 02/28/25 06:00 Brief Hx & Hospital Course: Final diagnoses: Metabolic encephalopathy due to hypoglycemia Hypoglycemia Insulin dependent Type 2 DM HTN CAD UTI B12 deficiency 64 year old female was admitted for ALOC due to hypoglycemia She recovered Asymptomatic now DC home Change NPH to 25 units in am and 15 units in pm with sliding scale Regular insulin UTI: Keflex x 5 days Vit B12 deficiency: B12 1 mg qd Condition at Discharge: Stable Final Diagnosis/Problems List Metabolic encephalopathy due to hypoglycemia Discharge Disposition: Home SNF Discharge Will this Physician continue t: No Discharge Instruct/Medications Diet: Consistent carbohydrate, Cardiac 2g Na,low cholest Activity: No Restrictions, As Tolerated Follow Up/Referral: PCP [facility] Medications: Humilin NPH 25 units am, 15 units pm Humilin R Sliding Scale B12 1 mg qd Keflex x 5 days Scheduled Carvedilol (Carvedilol), 1 TAB PO BID, (Reported) Cephalexin Monohydrate (Cephalexin), 1 CAP PO TID Cyanocobalamin (B12), 1,000 MCG PO DAILY Levothyroxine Sodium (Levothyroxine Sodium), 1 TAB PO DAILY, (Reported) Lisinopril (Lisinopril), 1 TAB PO DAILY, (Reported) Losartan Potassium (Losartan Potassium), 1 TAB PO DAILY, (Reported) Prasugrel HCl (Prasugrel), 1 TAB PO DAILY, (Reported) Tramadol Hcl (Tramadol Hcl), 1 TAB PO BIDPRN, (Reported) Miscellaneous Medications Albuterol Sulfate (Albuterol Sulfate Hfa), INH, (Reported) Insulin Regular (Human) (Humulin R), 1 ML IJ, (Reported) Insulin Regular (Human) (Humulin R), (Reported) Discharge Statement: "Patient was advised to return to the ER or call 911 if any headaches, dizziness, shortness of breath, chest pain, abdominal pain, bleeding, fevers, or worsening of medical condition. Patient was counseled about treatment plan, medications, possible side effects, patientverbalized understanding. All questions were answered to the best of my ability. This discharge took greater then 30 minutes in planning, reviewing documentation, counseling the patient, and discussing with other team members." ASSESSMENT ASSESSMENT Assessment Metabolic encephalopathy due to hypoglycemia Date of Service: Mar 01, 2025 Billing Provider: MELANIE SHORE MD Common Visit Codes: [id number] DISCH DAY >30min MELANIE SHORE MD Mar 01, 2025 17:22
--- NOTE | 2025-03-02 11:48 | DVHSR ---
APPROVED REPORT EXAM: Two-dimensional and M-mode echocardiogram with Doppler and color Doppler. Blood Pressure: 121/68 mmHg INDICATION CAD RISK FACTORS Height: 5'2", Weight: 238 DIMENSIONS LVDd 4.6 (3.8-5.7cm) LA (2D) 3.6 (1.9-4.0cm) Aortic Root 3.3 (2.0-3.7cm) LVDs 3.6 (2.5-4.0cm) LA (MM) (1.9-4.0cm) Aortic Cusp Exc 1.9 (1.5-2.0cm) EF (%) 45.0 (55-70%) Rt. Atrium (1.9-4.0cm) Asc. Aorta 3.5 cm IVSd 1.2 (0.7-1.1cm) RV (D) (1.8-2.4cm) Mitral Valve Mitral Mitral Stenosis E wave 0.53m/s MV Mean GR. mmHg A wave 0.86m/s MV Peak GR. mmHg E/A ratio 0.6 2D MVA cm2 DECEL Time 332ms PRESS 1/2 Time ms Aortic Valve Aortic Valve Aortic Stenosis V1 0.82m/s AO Mean GR. 4mmHg V2 1.22m/s AO Peak GR. 6mmHg LVOT Diameter 2.5 (1.8-2.4cm) Doppler KAYLIN 3.30cm2 Other Information Quality : Technically Limited Rhythm : Technically limited study due to body habitus. Conclusion Technically good study. Sinus rhythm. Concentric LVH. Mild aortic root enlargement. Valves are normal. Ventricular systolic performance is diminished. EF is approximately 30%. Inferior hypokinesis. Underlying global hypokinesis. Doppler reveals mild TR. No pericardial effusion masses or vegetations.
== END 2025-03-01 15:16 | disposition home or self-care (01) | DRG 637 ==
LOC: EDBD 09:57 → ER 09:57 → OVERFLOW 17:44 → EAST 22:11
PROVIDERS: ADMIT Internal Medicine; ATTEND Internal Medicine
DX: E11.649 Type 2 diabetes mellitus with hypoglycemia without coma (principal); G93.41 Metabolic encephalopathy; F06.1 Catatonic disorder due to known physiological condition; N39.0 Urinary tract infection, site not specified; I16.9 Hypertensive crisis, unspecified; E66.01 Morbid (severe) obesity due to excess calories; Z68.41 Body mass index [BMI] 40.0-44.9, adult; I25.10 Atherosclerotic heart disease of native coronary artery without angina pectoris; E53.8 Deficiency of other specified B group vitamins; I10 Essential (primary) hypertension; Z79.4 Long term (current) use of insulin; Z88.6 Allergy status to analgesic agent; Z88.2 Allergy status to sulfonamides; Z90.49 Acquired absence of other specified parts of digestive tract
CPT/HCPCS: 36415; 70450; 71045; 80048; 80053; 80307; 81001; 82607; 82962; 83036; 84443; 84484; 85025; 93005; 93306; 97163; 99291; 99292; G0378; J1815